=== PATIENT | female | born 1980 | race Caucasian/White ===

== ENCOUNTER 2022-07-05 17:04 | Emergency (ER) | payer BC ==
[~2022-07-05] VITALS: Ht 152.4 cm; Wt 79.6 kg
[2022-07-05] MEDS ORDERED: LORTAB 10 MG-3473 ML PO (17:40)
[2022-07-05] MEDS ORDERED: METHYLPHENIDATE10 MG PO (17:40)
[2022-07-05] MEDS ORDERED: NORETHINDRONE0.35 MG (17:40)
[2022-07-05] MEDS ORDERED: CLINDAMYCIN 600MG / 50ML 50 ML IV ONE (18:31)
[2022-07-05] MEDS ORDERED: BACTRIM DS TAB1 EACH PO (20:14)
== END 2022-07-05 20:27 | disposition home or self-care (01) ==
LOC: FSED 17:08
DX: N61.0 Mastitis without abscess (principal); L03.121 Acute lymphangitis of right axilla; G89.4 Chronic pain syndrome; F98.8 Other specified behavioral and emotional disorders with onset usually occurring in childhood and adolescence; F17.210 Nicotine dependence, cigarettes, uncomplicated; Z88.1 Allergy status to other antibiotic agents; Z91.030 Bee allergy status
CPT/HCPCS: 80053; 81003; 85025; 99284

== ENCOUNTER 2022-07-08 16:48 | Emergency (ER) | payer BC ==
[~2022-07-08] VITALS: Ht 152.4 cm; Wt 79.4 kg
[~2022-07-08 16:48] MED LIST: BACTRIM DS TAB1 EACH PO; LORTAB 10 MG-3473 ML PO; METHYLPHENIDATE10 MG PO; NORETHINDRONE0.35 MG
[2022-07-08] MEDS ORDERED: TAMIFLU75 MG PO (17:28)
[2022-07-08] MEDS ORDERED: ACETAMINOPHEN325 M1 PO (17:30)
== END 2022-07-08 17:45 | disposition home or self-care (01) ==
LOC: FSED 17:41
DX: N61.0 Mastitis without abscess (principal); M54.9 Dorsalgia, unspecified; G89.29 Other chronic pain; F98.8 Other specified behavioral and emotional disorders with onset usually occurring in childhood and adolescence
CPT/HCPCS: 99283

== ENCOUNTER 2024-02-23 12:26 | Emergency (ER) | payer MEDICARE, OTHER ==
[~2024-02-23] VITALS: Ht 152.4 cm; Wt 68.0 kg
[~2024-02-23 12:26] MED LIST changes: +ACETAMINOPHEN325 M1 PO; +BENZONATATE100 MG PO; +CLARITIN-D 241 EACH PO; +FLONASE ALLERG9.9 ML INH; +MUCINEX DM ER1 EAC1 PO; +TAMIFLU75 MG PO
[2024-02-23] MEDS ORDERED: IOPAMIDOL 370 MG/ML 100 ML INFUS..BTL INJ ONE (13:12)
[2024-02-23] MEDS ORDERED: BIRTH CONTROL (13:19)
[2024-02-23] MEDS ORDERED: METRONIDAZOLE500 MG PO (15:16)
[2024-02-23] MEDS ORDERED: CIPRO500 MG PO (15:16)
[2024-02-23 16:05] VITALS: PULSE 80; RESP 16; TEMP 98.1; O2SAT 96
[2024-02-23] MEDS ORDERED: ONDANSETRON ODT4 MG PO (16:05)
== END 2024-02-23 16:05 | disposition home or self-care (01) ==
LOC: FSED 12:29
DX: K52.9 Noninfective gastroenteritis and colitis, unspecified (principal); N39.0 Urinary tract infection, site not specified; Z88.1 Allergy status to other antibiotic agents
CPT/HCPCS: 74177; 80053; 81003; 81025; 85025; 99284; Q9967